=== PATIENT | male | born 1965 | race Caucasian/White ===

== ENCOUNTER 2016-04-27 19:08 | Emergency (ER) | payer OTHER ==
[~2016-04-27 19:08] MED LIST: ASPIRIN EC81 MG PO; FLONASE 0.05% D16 GM NS; PRILOSEC DPS20 MG PO; TYLENOL DPS325 MG PO
--- NOTE | 2016-04-28 01:47 | ER ---
ADMIT: 04/27/2016 RM/LOC: ER [facility] MR#: [id number] [address] [id number] ALESIA GARCES [address] [place] [id number] Emergency Room Report SEX: M AGE: 50 : 1965 DATE: 04/27/2016 The patient is a 50-year-old male who 6 hours ago noted right lower facial weakness, numbness. Denies any difficulty speaking seen or swallowing. No arm or leg weakness. Denies any headache. Exam remarkable for nontoxic, anxious, afebrile male with obvious right Ramos's palsy. CT head negative. Normal CBC, CMP, CRP, lactic acid, troponin, BN peptide. The patient given Valtrex 1 g p.o. in department and t.i.d. x7 days; prednisone 80 mg p.o. in department, 60 mg q.a.m. x7 days. Follow up with Dr. Moya next week. Lacri- Lube at night under occlusion. Mayur Potts MD/ dannal JOB #: [id number] CC: Mayur Potts MD, Attending Physician Mauricio Moya MD, Family Physician Mauricio Moya MD
== END 2016-04-27 21:13 | disposition home or self-care (01) ==
LOC: ER 19:08
DX: G51.0 Bell's palsy (principal); I10 Essential (primary) hypertension; E78.5 Hyperlipidemia, unspecified; Z98.890 Other specified postprocedural states; Z79.899 Other long term (current) drug therapy